=== PATIENT | male | born 1990 | race Caucasian/White ===

== ENCOUNTER 2018-04-13 08:55 | Emergency (ER) | payer MEDICAID ==
[2018-04-13] MEDS: LIDOCAINE 1% (MDV) 10 ML INJ INJ (09:58)
[2018-04-13] MEDS ORDERED: LIDOCAINE 1% (MPF) 5 ML VIAL INJ (10:30)
== END 2018-04-13 09:58 | disposition home or self-care (01) ==
LOC: FTE 08:55
DX: N45.4 Abscess of epididymis or testis (principal); E11.9 Type 2 diabetes mellitus without complications
CPT/HCPCS: 10060; 99283-25

== ENCOUNTER 2018-04-15 12:35 | Emergency (ER) | payer MEDICAID | END 2018-04-15 13:36 | disposition home or self-care (01) | LOC: FTE 12:35 | DX: N49.2 Inflammatory disorders of scrotum (principal); R40.2412 Glasgow coma scale score 13-15, at arrival to emergency department; E11.9 Type 2 diabetes mellitus without complications; Z87.891 Personal history of nicotine dependence | CPT/HCPCS: 99283; Z7502 ==

== ENCOUNTER 2018-10-26 09:27 | Emergency (ER) | payer OTHER, MEDICAID ==
[2018-10-26] MEDS: IBUPROFEN 600 MG TAB PO (10:36)
[2018-10-26] MEDS: AMOXICILLIN 500 MG CAP PO (10:40)
== END 2018-10-26 10:57 | disposition home or self-care (01) ==
LOC: FTE 09:27
DX: H92.02 Otalgia, left ear (principal); E10.9 Type 1 diabetes mellitus without complications; Z87.891 Personal history of nicotine dependence
CPT/HCPCS: 99283; Z7502